=== PATIENT | female | born 1965 | race Caucasian/White ===

== ENCOUNTER 2024-02-16 16:10 | Emergency (ER) | payer OTHER ==
[~2024-02-16] VITALS: Ht 172.7 cm; Wt 86.1 kg
[2024-02-16 16:16] VITALS: BP 143/87; PULSE 82; RESP 16; TEMP 97.8; O2SAT 97
[2024-02-16] MEDS ORDERED: AMOX-117 PO (17:02)
[2024-02-16] MEDS: rabies immune globulin/PF 150 unit/ml inj IMVAC STA (17:20)
[2024-02-16] MEDS: rabies vaccine (PCEC)/PF 2.5 unit kit IMVAC ONE (17:29)
[2024-02-16] MEDS: amox tr/potassium clavulanate 875/125mg TAB PO ONE (17:29)
== END 2024-02-16 17:30 | disposition home or self-care (01) ==
LOC: ER 16:10
DX: S61.031A Puncture wound without foreign body of right thumb without damage to nail, initial encounter (principal); Z79.899 Other long term (current) drug therapy; Z23 Encounter for immunization; W55.01XA Bitten by cat, initial encounter; Y93.89 Activity, other specified; Y92.89 Other specified places as the place of occurrence of the external cause; Y99.8 Other external cause status
CPT/HCPCS: 90376; 90471; 90675; 96372; 99284

== ENCOUNTER 2024-02-19 09:29 | Emergency (ER) | payer OTHER ==
[~2024-02-19] VITALS: Ht 172.7 cm; Wt 81.8 kg
[~2024-02-19 09:29] MED LIST: AMOX-117 PO
[2024-02-19 09:31] VITALS: PULSE 82; O2SAT 98
[2024-02-19] MEDS: rabies vaccine (PCEC)/PF 2.5 unit kit IMVAC ONE (11:47)
[2024-02-19 11:53] VITALS: RESP 16; TEMP 98
== END 2024-02-19 11:54 | disposition home or self-care (01) ==
LOC: ER 09:29
DX: S61.259D Open bite of unspecified finger without damage to nail, subsequent encounter (principal); W55.01XD Bitten by cat, subsequent encounter
CPT/HCPCS: 90471; 90675; 99281

== ENCOUNTER 2024-02-23 17:57 | Emergency (ER) | payer OTHER ==
[~2024-02-23] VITALS: Ht 172.7 cm; Wt 81.8 kg
[2024-02-23] MEDS: TETanus/Pertussis (Acell)/Diphther VAC/PF (Tdap-Adult) 0.5ml syringe IMVAC ONE (18:17)
[2024-02-23] MEDS: rabies vaccine (PCEC)/PF 2.5 unit kit IMVAC ONE (18:30)
[2024-02-23 18:35] VITALS: BP 114/80; PULSE 76; RESP 16; TEMP 98.3; O2SAT 99
== END 2024-02-23 18:36 | disposition home or self-care (01) ==
LOC: ER 17:57
DX: Z11.3 Encounter for screening for infections with a predominantly sexual mode of transmission (principal); Z20.3 Contact with and (suspected) exposure to rabies; Z79.2 Long term (current) use of antibiotics
CPT/HCPCS: 90471; 90675; 99281